=== PATIENT | female | born 1995 | race Two or more races ===

== ENCOUNTER 2024-05-21 19:25 | Emergency (ER) | payer MEDICAID, OTHER ==
[~2024-05-21] VITALS: Ht 162.6 cm; Wt 74.9 kg
[2024-05-21 19:45] VITALS: BP 104/68; PULSE 76; RESP 16; TEMP 98.3; O2SAT 99
[2024-05-21] MEDS ORDERED: METH4PAK PO (21:29)
[2024-05-21] MEDS ORDERED: ACET500T58 PO (21:29)
--- NOTE | 2024-05-21 21:29 | ED.PDOC ---
Musculoskeletal HPI Comments 28-YEAR-OLD FEMALE PRESENTS TO ER WITH COMPLAINTS OF BILATERAL HAND PAIN X2 WEEKS. PATIENT WITH PMH OF CARPAL TUNNEL REPORTS SHE HAS BEEN EXPERIENCING 7/10 BURNING PAIN WITH NUMBNESS/TINGLING TO FIRST 4 FINGERS OF BILATERAL HANDS X 2 WEEKS. STATES SHE DOES USE HER HANDS A LOT AT WORK AND AT HOME. NOTES SHE HAS BEEN TAKING IBUPROFEN FOR HER PAIN WITH SLIGHT RELIEF. DENIES INJURY OR ANY FURTHER SYMPTOMS/COMPLAINTS Chief Complaint: Upper Extremity Time Seen by MD: 20:10 Primary Care Provider: UNKNOWN Reviewed Notes: Nurses Notes, Medications, Allergies Allergies: Coded Allergies: NO KNOWN ALLERGIES (Unverified , 05/21/24) Home Meds Active Scripts Methylprednisolone (Medrol Dosepak) 4 Mg Williams, 4 MG PO UD, #21 TAB 0 Refills [facility] Prov:STEFAN HANKS 05/21/24 Acetaminophen (Acetaminophen) 500 Mg Tab, 500 MG PO Q4HPRN, #30 TAB 0 Refills Prov:STEFAN HANKS 05/21/24 Information Source: Patient Mode of Arrival: Ambulatory Past Medical History Past Medical History (Other): CARPAL TUNNEL Surgical History: Denies all surgeries JOB SERVICE SPECIALIST History: No Pertinent JOB SERVICE SPECIALIST History Family History Family History: Unknown Social History Smoker: Non-Smoker Alcohol: Denies ETOH Use Drugs: Denies Drug Use Lives In: Home Constitutional: denies: chills, diaphoresis, fatigue, fever, malaise, sweats, weakness, others EENTM: denies: blurred vision, double vision, ear bleeding, ear discharge, ear drainage, ear pain, ear ringing, eye pain, eye redness, hearing loss, mouth pain, mouth swelling, nasal discharge, nose bleeding, nose congestion, nose pain, photophobia, tearing, throat pain, throat swelling, voice changes, others Respiratory: denies: cough, hemoptysis, orthopnea, SOB at rest, shortness of breath, SOB with excertion, stridor, wheezing, others Cardiovascular: denies: chest pain, dizzy spells, diaphoresis, Dyspnea on exertion, edema, irregular heart beat, left arm pain, lightheadedness, palpitations, PND, syncope, others Gastrointestinal: denies: abdomen distended, abdominal pain, blood streaked bowels, constipated, diarrhea, dysphagia, difficulty swallowing, hematemesis, melena, nausea, poor appetite, poor fluid intake, rectal bleeding, rectal pain, vomiting, others Genitourinary: denies: abnormal vagina bleeding, burning, dyspareunia, dysuria, flank pain, frequency, hematuria, incontinence, pain, , vagina dis charge, urgency, others Neurological: reports: others ( STATED IN HPI) Musculoskeletal: reports: others ( STATED IN HPI) Integumetry: denies: bruises, change in color, change in hair/nails, dryness, laceration, lesions, lumps, rash, wounds, others Allergic/Immunocompromised: denies: Difficulty Healing, Frequent Infections, Hives, Itching, others Hematologic/Lymphatic: denies: anemia, blood clots, easy bleeding, easy bruising, swollen glands, others Endocrine: denies: excessive hunger, excessive sweating, excessive thirst, excessive urination, flushing, intolerance to cold, intolerance to heat, unexplained weight gain, unexplained weight loss, others Psychiatric: denies: anxiety, bipolar disorder, depression, hopeless, panic disorder, schizophrenia, sleepless, suicidal, others Physical Exam General Appearance: No Apparent Distress HEENT: PERRL/EOMI Neck: Full Range of Motion, Non-Tender, Normal Respiratory: Chest Non-Tender, Lungs Clear, No Accessory Muscle Use, No R espiratory Distress, Normal Breath Sounds Cardiovascular: No Murmur, No Gallop, Regular Rate/Rhythm Breast Exam: Deferred Gastrointestinal: NOT DONE Genitalia: Deferred Pelvic: Deferred Rectal: Deferred Extremities: Normal capillary refill, Normal range of motion Musculoskeletal : Extremity Location: Hand (SLIGHT TTP DIFFUSE TO ALL JOINTS OF BILATERAL HANDS AND CENTRALIZED TO BILATERAL WRISTS. NO SKIN CHANGES/DEFORMITIES APPRECIATED. POSITIVE PHALEN'S TEST BILATERALLY. PATIENT ABLE TO FULLY MOVE ALL FINGERS OF BILATERAL HANDS. PULSES INTACT) Neurologic: Alert, No Motor Deficits, Normal Affect, Normal Mood, No Sensory Deficits Cerebellar Function: Normal Reflexes: Normal Skin: Dry, Warm Peripheral Pulses: 2+ Radial (R), 2+ Radial (L), 2+ Brachial (R), 2+ Brachial (L) Lymphatic: No Adenopathy Was a procedure done? Was a procedure done?: No Sedation Sedation?: No Differential Diagnosis EXT Differential Diagnosis: Fracture, Dislocation, Neurovascular injury X-Ray, Labs, Meds, VS Vital Signs Date Time Temp Pulse Resp B/P (MAP) Pulse Ox O2 Delivery O2 Flow Rate FiO2 1/14/25 19:45 98.3 76 16 104/68 (80) 99 PATIENT NEUROVASCULARLY INTACT BILATERAL WRIST SPLINTS APPLIED ADVISED ON REST/NO STRENUOUS ACTIVITY ADVISED TO FOLLOW UP WITH PCP AND ORTHOPEDICS IN 1-2 DAYS PATIENT VERBALIZED UNDERSTANDING AND AGREEABLE WITH CURRENT PLAN OF CARE ADVISED TO RETURN TO ER IMMEDIATELY IF SYMPTOMS WORSEN Time of 1ST Reevaluation: 21:02 Reevaluation 1ST: N/A Patient Education/Counseling: Diagnosis, Treatment, Prognosis, Need For Follow Up Family Education/Counseling: No Family Present Departure 1 Departure Time of Disposition: 21:22 Impression: Primary Impression: Carpal tunnel syndrome on left Additional Impression: Carpal tunnel syndrome on right Disposition: 01 HOME / SELF CARE / HOMELESS Condition: Stable e-Prescriptions Methylprednisolone (Medrol Dosepak) 4 Mg Williams 4 MG PO UD, #21 TAB 0 Refills [facility] Prov: STEFAN HANKS 05/21/24 Acetaminophen (Acetaminophen) 500 Mg Tab 500 MG PO Q4HPRN, #30 TAB 0 Refills Prov: STEFAN HANKS 05/21/24 Discharged With: Self Critical Care Note Critical Care Time?: No Stability Stability form required: No Heart Score Heart Score: Heart Score Response (Comments) Value History N/A 0 EKG N/A 0 Age N/A 0 Risk Factors N/A 0 Troponin N/A 0 Total 0 STEFAN HANKS May 21, 2024 21:29
== END 2024-05-21 21:43 | disposition home or self-care (01) ==
LOC: ER 19:25
DX: G56.03 Carpal tunnel syndrome, bilateral upper limbs (principal)
CPT/HCPCS: 29125